=== PATIENT | male | born 1990 | race Two or more races ===

== ENCOUNTER 2018-05-28 11:16 | Emergency (ER) | payer BC, OTHER ==
[~2018-05-28] VITALS: Ht 177.8 cm; Wt 92.8 kg
--- NOTE | 2018-05-28 12:02 | NUR ---
Assumed care of patient. C/O dizziness and nausea. Patient reports hx of the same. Patient states that meclizine and PT exercises have helped in the past. PT exercises not working this time. Will continue to monitor.
[2018-05-28] MEDS ORDERED: ONDANSETRON ODT 4 MG ONE (12:06)
[2018-05-28] MEDS ORDERED: MECLIZINE CHEWABLE 25 MG TAB ONE (12:06)
[2018-05-28] MEDS ORDERED: MECLIZINE CHEWABLE 25 MG TAB PO ONE (12:30)
[2018-05-28] MEDS ORDERED: ONDANSETRON ODT 4 MG PO ONE (12:30)
--- NOTE | 2018-05-28 12:53 | NUR ---
CESILIA LundyT at bedside irrigating right ear.
[2018-05-28] MEDS ORDERED: DOCUSATE 50 MG/5 ML, 10ML UDC PO ONE (13:30)
[2018-05-28] MEDS ORDERED: DOCUSATE 50 MG/5 ML, 10ML UDC ONE (13:36)
--- NOTE | 2018-05-28 13:45 | NUR ---
Per Kamron, EDT right ear is still mildly impacted. Colace placed in ear.
[2018-05-28 14:40] VITALS: BP 129/76
== END 2018-05-28 14:42 | disposition home or self-care (01) ==
LOC: ED 12:41
DX: H81.11 Benign paroxysmal vertigo, right ear (principal)
CPT/HCPCS: 99284; Q0162